=== PATIENT | female | born 1955 | race African-American/Black ===

== ENCOUNTER 2019-09-04 20:40 | Emergency (ER) | payer SELFPAY ==
[~2019-09-04] VITALS: Ht 165.1 cm; Wt 77.1 kg
[~2019-09-04 20:40] MED LIST: BENZONATATE100 MG PO; VENTOLIN HFA18 GM INH; VIBRAMYCIN100 MG PO
--- NOTE | 2019-09-04 21:01 | NUR ---
ED Nurse Note: pt presents to ED with a concern that she was "poisoned." per pt she was having a glass of wine with a friend at around 1930 today when she finished half of the glass she started to feel "disoriented " and "unbalanced and unsteady" on her feet. pt statess that she can typically consume more alcohol than this and ot feel these symptoms. pt denies N/V/D or any urinary symptoms at this time.
[2019-09-04 21:11] VITALS: BP 166/85
--- NOTE | 2019-09-04 21:15 | NUR ---
ED Nurse Note: pt had one episode of vomiting after drinking water
--- NOTE | 2019-09-04 21:33 | Emergency Room Report ---
History of Present Illness General Chief Complaint: Alcohol Intoxication Source: Patient Present Illness HPI This is a 64-year-old female with no past medical history. She presents with chief complaint of possible poisoning. She said that about an hour prior to arrival, she drinks about 6 ounces of red wine. The wine was brought over from a friend who had a friend who tried to start a wine company. There is no name on the wine bottle. She drank that and 15 to 30 minutes later she felt "out of the sort." She felt palpitation and dizzy. She felt nauseous. Here she had a couple episode of vomiting. She thought that she may be poisoned. She did not know if there is anything else in the wind. She said it tastes a little bad. She also had to shrimp taco that she made 30 minutes prior to drinking the alcohol. She is usually not a drinker. Allergies: Coded Allergies: No Known Allergies (Verified Allergy, Unknown, 05/02/10) Patient History Past Medical History: see triage record, old chart reviewed Past Surgical History: none Pertinent Family History: none Social History: Denies: smoking Immunizations: other Reviewed Nursing Documentation: PMH: Agreed; PSxH: Agreed Nursing Documentation-PMH Past Medical History: No Stated History Review of Systems Eye: Denies: eye pain, blurred vision ENT: Denies: ear pain, nose congestion, throat swelling Respiratory: Denies: cough, shortness of breath Cardiovascular: Reports: palpitations; Denies: chest pain Gastrointestinal: Reports: nausea, vomiting; Denies: abdominal pain, diarrhea Musculoskeletal: Denies: back pain, joint pain Skin: Denies: rash Neurological: Denies: headache, numbness Endocrine: Denies: increased thirst, increased urine Hematologic/Lymphatic: Denies: easy bruising All Other Systems: negative except mentioned in HPI Physical Exam Vital Signs Date Time Temp Pulse Resp B/P (MAP) Pulse Ox O2 Delivery O2 Flow Rate FiO2 09/04/19 20:46 97.3 84 14 166/85 (112) 97 Room Air Vitals with high blood pressure Sp02 EP Interpretation: reviewed, normal General Appearance: well appearing, no apparent distress, alert Head: normocephalic, atraumatic Eyes: bilateral eye PERRL, bilateral eye EOMI ENT: hearing grossly normal, normal pharynx Neck: full range of motion, supple, no meningismus Respiratory: chest non-tender, lungs clear, normal breath sounds Cardiovascular #1: regular rate, rhythm, no murmur Gastrointestinal: normal bowel sounds, non tender, no mass, no organomegaly, no bruit, non-distended Musculoskeletal: back normal, normal range of motion, gait/station normal Psychiatric: anxious Medical Decision Making Diagnostic Impression: Primary Impression: Nausea & vomiting Qualified Codes: R11.2 - Nausea with vomiting, unspecified ER Course Patient presents with "poisoning." I suspect is probably from the alcohol since she is not a drinker. She had several episode of vomiting here and felt better now. She is drinking fluid. She does not want blood work or IV fluid anymore. Will discharge home. Last Vital Signs Date Time Temp Pulse Resp B/P (MAP) Pulse Ox O2 Delivery O2 Flow Rate FiO2 09/04/19 21:11 97.3 85 14 166/85 97 Room Air Status: improved Disposition: HOME, SELF-CARE Condition: Stable Additional Instructions: Follow-up with your doctor in 7 days. Return if symptoms worsen. Alfred Jameson MD Sep 04, 2019 21:33
--- NOTE | 2019-09-04 21:38 | NUR ---
ED Nurse Note: pt refusing IV or blood draw, states she is feeling better after vomiting. ERMD notified
[2019-09-04 22:15] VITALS: BP 166/85
--- NOTE | 2019-09-04 22:15 | NUR ---
ER DISCHARGE NOTE: Patient is cleared to be discharged per ERMD, pt is aox4, on room air, with stable vital signs. pt and daughter were given dc instructions, and follow up & when to return to ED instructions. both were able to verbalize understanding, pt id band removed without complications. pt is able to ambulate with steady gait. pt took all belongings.
== END 2019-09-04 22:15 | disposition home or self-care (01) ==
LOC: EMR 21:04
DX: R11.2 Nausea with vomiting, unspecified (principal)
CPT/HCPCS: 99281